=== PATIENT | female | born 1990 | race Caucasian/White ===

== ENCOUNTER 2017-07-11 18:17 | Emergency (ER) | payer MEDICAID ==
--- NOTE | ~2017-07-11 | ER ---
PATIENT'S NAME: LEILA THAKUR [facility] AGE: 26 Y [address] ROOM: [place] [address] LOCATION: [facility] ADMIT DATE: 07/11/2017 ER/Outpatient Report DISCHARGE DATE: 07/11/2017 FAMILY PHYSICIAN: Brea Wright MD ATTENDING PHYSICIAN: Miguel Waterman Time of Arrival: 1824. Time of Exam: 1824. CHIEF COMPLAINT: Eye irritation. HISTORY OF PRESENT ILLNESS: The patient reports they were at the [facility] and she had a runny nose and then suddenly she felt her eyes become uncomfortable, irritated, and swollen. States she had a similar episode about a year ago, at that time, it was concerned that it was related to getting jalapeno juice in her eyes. She did get some sbvc-wjs-vfwtjwu allergy med that she took prior to arrival. It was a combination medications included Tylenol, Benadryl, and Sudafed. She denies having any vision changes. Does not have photophobia or blurred vision. She states she does not think she got anything in her eyes, but it was windy outside. Denies feeling short of breath or having difficulty breathing. ALLERGIES: CECLOR. CURRENT MEDICATIONS: Epjn-bqv-utbwwux allergy medications. PAST MEDICAL HISTORY: Seasonal allergies. PAST SURGICAL HISTORY: Removal of a cyst on her neck and x2. SOCIAL HISTORY: Smokes half pack per day and has for the past 15 years. Denies use of drugs. Drinks alcohol on a social basis only. Reports Dr. Wright is her primary provider. REVIEW OF SYSTEMS: All negative other than those mentioned in the HPI. PHYSICAL EXAMINATION: VITAL SIGNS: She weighed 75.3 kg, blood pressure is 124/77, pulse is 76, PATIENT'S NAME: LEILA THAKUR [facility] AGE: 26 Y [address] ROOM: [place] [address] LOCATION: [facility] ADMIT DATE: 07/11/2017 ER/Outpatient Report DISCHARGE DATE: 07/11/2017 FAMILY PHYSICIAN: Brea Wright MD ATTENDING PHYSICIAN: Miguel Waterman respirations 20, temperature of 98.7 tympanic, and O2 saturation was 100% on room air. Vision acuity: right: 20/20; left: 20/20; both 20/20 with correction. Patient does not wear glasses or contacts. GENERAL: She is awake, alert, and oriented x4. SKIN: [place], warm, and dry. No hives noted. RESPIRATIONS: Even and nonlabored. HEENT: Pupils are equal reactive to light. 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 Right eye is worse than left. Conjunctiva area is reddened. Funduscopic exam is grossly intact. TMs are pearly ocasio. Nasal is clear. Oropharynx is clear. NECK: Supple. No lymphadenopathy. LUNGS: Lung sounds are clear throughout. HEART: Regular rate and rhythm. EMERGENCY ROOM COURSE: Saline lock was initiated. She was given Solu-Medrol 125 mg IV. Eyes were anesthetized with Alcaine. No foreign object is noted. Eyes were then flushed with normal saline. The patient tolerated the procedure well. She was given Benadryl 25 mg IV. The swelling of the eyes did decrease. She continued to deny having any vision changes. Vital signs remained stable. IMPRESSION: Allergic reaction with scleredema. PLAN: Home, rest. She can repeat [id number]-[id number] allergy med as needed. Encouraged to do eye rest, no driving. Prescription was written for erythromycin ophthalmic drops. She is to follow up with an eye doctor in the morning. She verbalized understanding. KEN GALICIA APRN FOR DO MARIO ZARATE/jarad /[id number] d: 07/11/17 2323 t: 07/13/17 1846, OUTPATIENT REPORT
== END 2017-07-11 19:46 | disposition disaster alternative care site (69) ==
LOC: GMED 18:17
DX: T78.1XXA Other adverse food reactions, not elsewhere classified, initial encounter (principal); F17.210 Nicotine dependence, cigarettes, uncomplicated; M34.9 Systemic sclerosis, unspecified; Z88.8 Allergy status to other drugs, medicaments and biological substances; Z98.890 Other specified postprocedural states; X58.XXXA Exposure to other specified factors, initial encounter
CPT/HCPCS: J1200; J2930; J7030